=== PATIENT | female | born 1955 | race Two or more races ===

== ENCOUNTER 2018-01-13 20:20 | Emergency (ER) | payer SELFPAY ==
[~2018-01-13] VITALS: Ht 157.5 cm; Wt 59.0 kg
[2018-01-13 20:33] VITALS: BP 138/76
== END 2018-01-13 22:19 | disposition home or self-care (01) ==
LOC: ER 20:32
DX: J40 Bronchitis, not specified as acute or chronic (principal); L93.0 Discoid lupus erythematosus
CPT/HCPCS: 71045; 99283; A4606; Z7610